=== PATIENT | female | born 1960 | race Caucasian/White ===

== ENCOUNTER 2018-04-18 10:42 | Inpatient (IN) | payer BC ==
[2018-04-18] MEDS ORDERED: ASPIRIN 81 MG TABLET, CHEWABLE PO ONE (11:11)
[2018-04-18 12:04] LABS: HEMATOCRIT 34.1 % (36.0-47.0); HEMOGLOBIN 11.4 g/dL (12.0-15.5); MEAN CORPUSCULAR HEMOGLOBIN 27.8 pg (27.0-33.4); MEAN CORPUSCULAR HGB CONC 33.6 g/dL (32.0-36.0); MEAN CORPUSCULAR VOLUME 83 fl (80-97); PLATELET COUNT 282 10^3/uL (150-450); RED BLOOD COUNT 4.11 10^6/uL (3.72-5.28); RED CELL DISTRIBUTION WIDTH 13.6 % (11.5-14.0); WHITE BLOOD COUNT 20.5 10^3/uL (4.0-10.5)
[2018-04-18 12:18] LABS: ALANINE AMINOTRANSFERASE 34 U/L (9-52); ALBUMIN 3.8 g/dL (3.5-5.0); ALKALINE PHOSPHATASE 111 U/L (38-126); ANION GAP 15 (5-19); ASPARTATE AMINO TRANSFERASE 22 U/L (14-36); BILIRUBIN,DIRECT 0.2 mg/dL (0.0-0.4); BILIRUBIN,TOTAL 0.5 mg/dL (0.2-1.3); BLOOD UREA NITROGEN 17 mg/dL (7-20); CALCIUM 9.2 mg/dL (8.4-10.2); CARBON DIOXIDE 24 mmol/L (22-30); CHLORIDE 100 mmol/L (98-107); CREATINE KINASE 35 U/L (30-135); GLUCOSE 193 mg/dL (75-110); POTASSIUM 3.9 mmol/L (3.6-5.0); SODIUM 139.4 mmol/L (137-145); TOTAL PROTEIN 6.7 g/dL (6.3-8.2)
--- NOTE | 2018-04-18 12:21 | RADIOLOGY REPORT (SQ) ---
EXAM DESCRIPTION: CHEST SINGLE VIEW COMPLETED DATE/TIME: 04/18/2018 11:59 am REASON FOR STUDY: cp COMPARISON: 01/07/2016 EXAM PARAMETERS: NUMBER OF VIEWS: One view. TECHNIQUE: Single frontal radiographic view of the chest acquired. RADIATION DOSE: NA LIMITATIONS: None. FINDINGS: LUNGS AND PLEURA: Low volume AP examination with probable bibasilar bronchovascular crowdi ng and/or atelectasis. MEDIASTINUM AND HILAR STRUCTURES: No masses. Contour normal. HEART AND VASCULAR STRUCTURES: Cardiomegaly. BONES: No acute findings. HARDWARE: None in the chest. OTHER: No other significant finding. IMPRESSION: Low volume AP examination with probable bibasilar bronchovascular crowding and/or atelec tasis. This may be further evaluated by PA and lateral chest radiographs with better inspiratory mindy hnique if desired. Cardiomegaly is likely exaggerated by low volume. TECHNICAL DOCUMENTATION: JOB ID: [id number] [employer]- All Rights Reserved Reading location - IP/workstation name: [email or web address]
[2018-04-18 12:27] LABS: ABSOLUTE LYMPHOCYTES# (MANUAL) 0.8 10^3/uL (0.5-4.7); ABSOLUTE MONOCYTES # (MANUAL) 1.6 10^3/uL (0.1-1.4); ABSOLUTE NEUTROPHILS# (MANUAL) 17.8 10^3/uL (1.7-8.2); BASOPHILS % (MANUAL) 0 % (0-2); EOSINOPHILS % (MANUAL) 1 % (0-6); LYMPHOCYTES % (MANUAL) 4 % (13-45); MONOCYTES % (MANUAL) 8 % (3-13); PLATELET COMMENT ADEQUATE; SEGMENTED NEUTROPHILS % (MAN) 87 % (42-78); TOTAL CELLS COUNTED 100
[2018-04-18] MEDS ORDERED: FAMOTIDINE INJ/PF 20 MG/2 ML SDV IV ONE (12:27)
[2018-04-18] MEDS ORDERED: ONDANSETRON HCL INJ/PF 4 MG/2 ML SDV IV ONE (12:27)
[2018-04-18] MEDS ORDERED: LOPERAMIDE HCL 2 MG CAPSULE PO ONE (12:28)
[2018-04-18] MEDS ORDERED: RINGERS SOLUTION,LACTATED 1,000 ML IV ONE (12:28)
[2018-04-18] MEDS ORDERED: MORPHINE SULFATE 10 MG/ML INJ IV ONE (12:29)
--- NOTE | 2018-04-18 12:35 | ER Document Report ---
ED General - General Chief Complaint: Chest Pain Stated Complaint: CHEST PAIN Time Seen by Provider: 04/18/18 11:53 Mode of Arrival: Ambulatory Information source: Patient, [facility] Records Notes: 58-year-old female with hypertension, congestive heart failure (echocardiogram performed in 2016 showed a normal ejection fraction), type 1 diabetes, hyperlipidemia, fibromyalgia presents with complaint of nausea, vomiting, diarrhea and chest pain that started this morning 7 hours prior to arrival. Patient states that she awoke this morning vomiting and having diarrhea. She states that she has had 4-5 episodes of nonbilious nonbloody emesis. She denies any black or bloody stools. Patient denies abdominal pain but states that she is experiencing chest pressure that also started 7 hours prior to arrival. Patient has had associated chills. Denies sick contacts. Has not received a flu shot. TRAVEL OUTSIDE OF THE [place] IN LAST 30 DAYS: No - HPI Onset: This morning Onset/Duration: Sudden Quality of pain: Pressure Associated symptoms: Chest pain, Chills, Diarrhea, Nausea, Vomiting, Shortness of breath. denies: Nonproductive cough, Productive cough Exacerbated by: Denies Relieved by: Denies Similar symptoms previously: No Recently seen / treated by doctor: No - Related Data Allergies/Adverse Reactions: metformin Adverse Reaction (Verified 11/28/15 16:01) strawberry Adverse Reaction (Verified 11/28/15 07:19) Past Medical History - General Information source: Patient, Relative, [facility] Records - Social History Smoking Status: Never Smoker Frequency of alcohol use: Social Drug Abuse: None Lives with: Spouse/Significant other Family History: None Patient has suicidal ideation: No Patient has homicidal ideation: No - Past Medical History Cardiac Medical History: Reports: Hx Congestive Heart Failure, Hx Hypercholesterolemia, Hx Hypertension Pulmonary Medical History: Reports: Hx Pneumonia Endocrine Medical History: Reports: Hx Diabetes Mellitus Type 1, Hx Diabetes Mellitus Type 2 Renal/ Medical History: Denies: Hx Peritoneal Dialysis Past Surgical History: Reports: Hx Breast Surgery - biopsy R breast, Hx Section - x2 - Immunizations Hx Diphtheria, Pertussis, Tetanus Vaccination: Yes Review of Systems - Review of Systems Constitutional: Chills, Malaise EENT: denies: Blurred vision, Nose congestion, Throat pain Cardiovascular: Chest pain. denies: Palpitations, Dizziness, Lightheaded Respiratory: Short of breath. denies: Cough, Wheezing Gastrointestinal: Diarrhea, Nausea, Vomiting. denies: Abdominal pain, Blood streaked bowels, Blood in vomit Genitourinary: denies: Dysuria, Flank pain Female Genitourinary: No symptoms reported Musculoskeletal: Back pain - Chronic Skin: denies: Rash Hematologic/Lymphatic: No symptoms reported Neurological/Psychological: denies: Confusion, Anxiety, Weakness, Headaches, Suicidal ideation -: Yes All other systems reviewed and negative Physical Exam - Vital signs Vitals: Temp Pulse Resp BP Pulse Ox 99.9 F 112 H 20 150/64 H 92 04/18/18 11:10 04/18/18 11:10 04/18/18 11:10 04/18/18 11:10 04/18/18 11:10 Interpretation: Tachycardic, Hypoxic, Febrile. No: Hypotensive - Notes Notes: PHYSICAL EXAMINATION: GENERAL: Ill-appearing, well-nourished and in mild distress. HEAD: Atraumatic, normocephalic. EYES: Pupils equal round and reactive to light, extraocular movements intact, conjunctiva are normal. ENT: Nares patent, oropharynx clear without exudates. Moist mucous membranes. NECK: Normal range of motion, supple without lymphadenopathy LUNGS: Breath sounds clear to auscultation bilaterally and equal. No wheezes rales or rhonchi. HEART: Tachycardic, regular rhythm. ABDOMEN: Diffuse abdominal tenderness without rebound or guarding. Female : deferred Musculoskeletal: Normal range of motion, no pitting or edema. No cyanosis. NEUROLOGICAL: Cranial nerves grossly intact. Normal speech, normal gait. Normal sensory, motor exams PSYCH: Normal mood, normal affect. SKIN: Warm, Dry, normal turgor, no rashes or lesions noted. Course - Re-evaluation Re-evalutation: Laboratory 04/18/18 04/18/18 04/18/18 11:40 11:40 11:40 WBC 20.5 H RBC 4.11 Hgb 11.4 L Hct 34.1 L MCV 83 MCH 27.8 MCHC 33.6 RDW 13.6 Plt Count 282 Total Counted 100 Seg Neutrophils % Not Reportable Seg Neuts % (Manual) 87 H Lymphocytes % Not Reportable Lymphocytes % (Manual) 4 L Monocytes % Not Reportable Monocytes % (Manual) 8 Eosinophils % Not Reportable Eosinophils % (Manual) 1 Basophils % Not Reportable Basophils % (Manual) 0 Absolute Neutrophils Not Reportable Abs Neuts (Manual) 17.8 H Absolute Lymphocytes Not Reportable Abs Lymphs (Manual) 0.8 Absolute Monocytes Not Reportable Abs Monocytes (Manual) 1.6 H Absolute Eosinophils Not Reportable Absolute Eos (Manual) 0.2 Absolute Basophils Not Reportable Abs Basophils (Manual) 0.0 Platelet Comment ADEQUATE Sodium 139.4 Potassium 3.9 Chloride 100 Carbon Dioxide 24 Anion Gap 15 BUN 17 Creatinine 0.57 Est GFR ( Amer) > 60 Est GFR (Non-Af Amer) > 60 Glucose 193 H Lactic Acid Calcium 9.2 Total Bilirubin 0.5 Direct Bilirubin 0.2 Neonat Total Bilirubin Not Reportable Neonat Direct Bilirubin Not Reportable Neonat Indirect Bili Not Reportable AST 22 ALT 34 Alkaline Phosphatase 111 Creatine Kinase 35 CK-MB (CK-2) < 0.22 Troponin I < 0.012 NT-Pro-B Natriuret Pep Total Protein 6.7 Albumin 3.8 Lipase Urine Color Urine Appearance Urine pH Ur Specific [place] Urine Protein Urine Glucose (UA) Urine Ketones Urine Blood Urine Nitrite Urine Bilirubin Urine Urobilinogen Ur Leukocyte Esterase Urine WBC (Auto) Urine RBC (Auto) U Hyaline Cast (Auto) Urine Bacteria (Auto) Squamous Epi Cells Auto Urine Mucus (Auto) Urine Ascorbic Acid Influenza A (Rapid) Influenza B (Rapid) 04/18/18 04/18/18 04/18/18 11:40 11:40 11:40 WBC RBC Hgb Hct MCV MCH MCHC RDW Plt Count Total Counted Seg Neutrophils % Seg Neuts % (Manual) Lymphocytes % Lymphocytes % (Manual) Monocytes % Monocytes % (Manual) Eosinophils % Eosinophils % (Manual) Basophils % Basophils % (Manual) Absolute Neutrophils Abs Neuts (Manual) Absolute Lymphocytes Abs Lymphs (Manual) Absolute Monocytes Abs Monocytes (Manual) Absolute Eosinophils Absolute Eos (Manual) Absolute Basophils Abs Basophils (Manual) Platelet Comment Sodium Potassium Chloride Carbon Dioxide Anion Gap BUN Creatinine Est GFR ( Amer) Est GFR (Non-Af Amer) Glucose Lactic Acid 0.9 Calcium Total Bilirubin Direct Bilirubin Neonat Total Bilirubin Neonat Direct Bilirubin Neonat Indirect Bili AST ALT Alkaline Phosphatase Creatine Kinase CK-MB (CK-2) Troponin I NT-Pro-B Natriuret Pep 152 Total Protein Albumin Lipase 52.8 Urine Color Urine Appearance Urine pH Ur Specific [place] Urine Protein Urine Glucose (UA) Urine Ketones Urine Blood Urine Nitrite Urine Bilirubin Urine Urobilinogen Ur Leukocyte Esterase Urine WBC (Auto) Urine RBC (Auto) U Hyaline Cast (Auto) Urine Bacteria (Auto) Squamous Epi Cells Auto Urine Mucus (Auto) Urine Ascorbic Acid Influenza A (Rapid) Influenza B (Rapid) 04/18/18 04/18/18 04/18/18 12:40 13:20 15:02 WBC RBC Hgb Hct MCV MCH MCHC RDW Plt Count Total Counted Seg Neutrophils % Seg Neuts % (Manual) Lymphocytes % Lymphocytes % (Manual) Monocytes % Monocytes % (Manual) Eosinophils % Eosinophils % (Manual) Basophils % Basophils % (Manual) Absolute Neutrophils Abs Neuts (Manual) Absolute Lymphocytes Abs Lymphs (Manual) Absolute Monocytes Abs Monocytes (Manual) Absolute Eosinophils Absolute Eos (Manual) Absolute Basophils Abs Basophils (Manual) Platelet Comment Sodium Potassium Chloride Carbon Dioxide Anion Gap BUN Creatinine Est GFR ( Amer) Est GFR (Non-Af Amer) Glucose Lactic Acid Calcium Total Bilirubin Direct Bilirubin Neonat Total Bilirubin Neonat Direct Bilirubin Neonat Indirect Bili AST ALT Alkaline Phosphatase Creatine Kinase CK-MB (CK-2) Troponin I < 0.012 NT-Pro-B Natriuret Pep Total Protein Albumin Lipase Urine Color STRAW Urine Appearance CLEAR Urine pH 5.0 Ur Specific [place] 1.008 Urine Protein NEGATIVE Urine Glucose (UA) >=500 H Urine Ketones NEGATIVE Urine Blood NEGATIVE Urine Nitrite NEGATIVE Urine Bilirubin NEGATIVE Urine Urobilinogen NEGATIVE Ur Leukocyte Esterase NEGATIVE Urine WBC (Auto) 2 Urine RBC (Auto) 0 U Hyaline Cast (Auto) 3 Urine Bacteria (Auto) 3+ Squamous Epi Cells Auto 1 Urine Mucus (Auto) RARE Urine Ascorbic Acid NEGATIVE Influenza A (Rapid) NEGATIVE Influenza B (Rapid) NEGATIVE Chest X-Ray 04/18/18 11:11 IMPRESSION: Low volume AP examination with probable bibasilar bronchovascular crowding and/or atelectasis. This may be further evaluated by PA and lateral chest radiographs with better inspiratory technique if desired. Cardiomegaly is likely exaggerated by low volume. Abdomen Ultrasound 04/18/18 12:35 IMPRESSION: NORMAL RIGHT UPPER QUADRANT ULTRASOUND. Abdomen/Pelvis CT 04/18/18 12:35 IMPRESSION: NO SIGNIFICANT OR ACUTE FINDING IN THE ABDOMEN OR PELVIS ON CT SCAN WITH IV CONTRAST. Chest/Abdomen CTA 04/18/18 12:37 IMPRESSION: No pulmonary emboli. Pericardial effusion. Scattered parenchymal opacities predominantly right middle lobe and left lung base. Fatty liver. 58-year-old female presents with complaint of nausea, vomiting, diarrhea, chest pain and chills that started at 7 AM this morning. Upon arrival patient is tachycardic, febrile and hypoxic. She appears ill but not toxic or dehydrated. Upon arrival patient was placed on court recording monitor and EKG was obtained which showed the patient be in sinus tachycardia.. Patient is requiring 2 L of oxygen to maintain an oxygen saturation above 94%. No significant physical exam findings. Because of the patient's diffuse abdominal tenderness right upper quadrant ultrasound was obtained and within normal limits as well as a CAT scan of the abdomen and pelvis which showed no acute findings. Because of the patient's persistent tachycardia, hypoxia CTA was obtained which was negative for pulmonary embolism but did show a pericardial effusion and infiltrates consistent with pneumonia. I did contact the radiologist in regards to the size of the pericardial effusion which she states is moderate. Patient has not had any hospitalizations in the last 90 days. Ceftriaxone and azithromycin were administered. CBC does show a significant leukocytosis of 20. CMP essentially unremarkable except for elevated glucose of 190. Lactate within normal limits. LFTs within normal limits. Influenza negative. Patient was accepted by the hospitalist . Patient does report improvement of her symptoms. Heart rate now 90. 04/18/18 14:57 Patient reevaluated. She is sitting up texting on her phone. States that her chest discomfort nausea, vomiting and diarrhea have resolved. Still requires oxygen for hypoxia. 04/18/18 17:24 04/18/18 17:26 04/18/18 17:27 04/18/18 17:33 04/18/18 21:13 - Vital Signs Vital signs: Temp Pulse Resp BP Pulse Ox 97.9 F 80 16 125/40 L 99 04/18/18 18:18 04/18/18 19:45 04/18/18 19:45 04/18/18 18:18 04/18/18 18:18 - Laboratory Result Diagrams: 04/18/18 11:40 04/18/18 11:40 Laboratory results interpreted by me: 04/18/18 04/18/18 04/18/18 11:40 11:40 13:20 WBC 20.5 H Hgb 11.4 L Hct 34.1 L Seg Neuts % (Manual) 87 H Lymphocytes % (Manual) 4 L Abs Neuts (Manual) 17.8 H Abs Monocytes (Manual) 1.6 H Glucose 193 H Urine Glucose (UA) >=500 H - Diagnostic Test Radiology reviewed: Image reviewed, Reports reviewed - EKG Interpretation by Me EKG shows normal: Sinus rhythm Rate: Tachycardia Rhythm: NSR Discharge - Discharge Clinical Impression: Tachycardia, Pericardial effusion, Nausea vomiting and diarrhea, Hyperglycemia Community acquired pneumonia Qualifiers: Laterality: unspecified laterality Qualified Code(s): J18.9 - Pneumonia, unspecified organism Fever Qualifiers: Fever type: unspecified Qualified Code(s): R50.9 - Fever, unspecified Abdominal pain Qualifiers: Abdominal location: generalized Qualified Code(s): R10.84 - Generalized abdominal pain Condition: Good Disposition: ADMITTED INPATIENT Admitting Provider: Hospitalist Unit Admitted: Telemetry
[2018-04-18 12:37] LABS: CREATINE KINASE MB < 0.22 ng/mL (<4.55); TROPONIN I < 0.012 ng/mL
[2018-04-18 13:22] LABS: A TYPE INFLUENZA AG NEGATIVE (NEGATIVE); B INFLUENZA AG NEGATIVE (NEGATIVE)
[2018-04-18] MEDS ORDERED: ACETAMINOPHEN 325 MG TABLET PO ONE (13:48)
--- NOTE | 2018-04-18 13:50 | RADIOLOGY REPORT (SQ) ---
EXAM DESCRIPTION: U/S ABDOMEN LIMITED W/O DOP COMPLETED DATE/TIME: 04/18/2018 1:43 pm REASON FOR STUDY: Right upper quadrant abdominal pain COMPARISON: None. TECHNIQUE: Dynamic and static grayscale images acquired of the abdomen and recorded on PACS. Additio betty selected color Doppler and spectral images recorded. LIMITATIONS: None. FINDINGS: PANCREAS: No masses. Visualized pancreatic duct normal caliber. LIVER: No masses. Echotexture normal. LIVER VASCULATURE: Normal directional flow of the main portal vein and hepatic veins. GALLBLADDER: No stones. Normal wall thickness. No pericholecystic fluid. ULTRASOUND-DETECTED BECKMAN'S SIGN: Negative. INTRAHEPATIC DUCTS AND COMMON DUCT: CBD and intrahepatic ducts normal caliber. No filling defects. INFERIOR VENA CAVA: Normal flow. AORTA: No aneurysm. RIGHT KIDNEY: Normal size. Normal echogenicity. No solid or suspicious masses. No hydronephrosis. No calcifications. PERITONEAL AND RIGHT PLEURAL SPACE: No ascites or effusions. OTHER: No other significant findings. IMPRESSION: NORMAL RIGHT UPPER QUADRANT ULTRASOUND. TECHNICAL DOCUMENTATION: JOB ID: [id number] [employer]- All Rights Reserved Reading location - IP/workstation name: [email or web address]
[2018-04-18 14:10] LABS: APPEARANCE,URINE CLEAR; BILIRUBIN,URINE NEGATIVE (NEGATIVE); COLOR,URINE STRAW; GLUCOSE, URINE >=500 mg/dL (NEGATIVE); KETONES,URINE NEGATIVE (NEGATIVE); LEUKOCYTE ESTERASE,URINE NEGATIVE (NEGATIVE); NITRITE,URINE NEGATIVE (NEGATIVE); PROTEIN,URINE NEGATIVE (NEGATIVE); URINE SPECIFIC GRAVITY 1.008; UROBILINOGEN,URINE NEGATIVE mg/dL (<2.0)
--- NOTE | 2018-04-18 15:49 | RADIOLOGY REPORT (SQ) ---
EXAM DESCRIPTION: CTA CHEST COMPLETED DATE/TIME: 04/18/2018 3:39 pm REASON FOR STUDY: hypoxic tachy COMPARISON: Chest radiograph 04/18/2018 TECHNIQUE: CT scan of the chest performed using helical scanning technique with dynamic intravenous contrast injection. Images reviewed with lung, soft tissue and bone windows. Reconstructed coronal and sagittal MPR images reviewed. Additional 3 dimensional post-processing performed to develop Maximal Intensity Projection images (NE P). All images stored on PACS. All CT scanners at this facility use dose modulation, iterative reconstruction, and/or weight based d osing when appropriate to reduce radiation dose to as low as reasonably achievable (ALARA). [facility]: Dose Right [facility]: CareDose [facility]: Dose Right [facility]: Teradose 4D [facility]: Smart [employer] CONTRAST TYPE AND DOSE: contrast/concentration: Isovue 350.00 mg/ml; Total Contrast Delivered: 77.0 ml; Total Saline Delivered: 111.0 ml Contrast bolus adequate for pulmonary arteries and aorta. RENAL FUNCTION: GFR > 60. RADIATION DOSE: . LIMITATIONS: None. FINDINGS: LUNGS AND PLEURA: Scattered parenchymal opacities predominantly right middle lobe and left lung base. No effusions. AORTA AND GREAT VESSELS: No aneurysm. Contrast bolus not optimized for the aorta. HEART: Pericardial effusion. No significant coronary artery calcifications. PULMONARY ARTERIES: No emboli visualized in the main pulmonary arteries or the segmental branches. HILAR AND MEDIASTINAL STRUCTURES: No identified masses or abnormal nodes. HARDWARE: None in the chest. UPPER ABDOMEN: Fatty liver. THYROID AND OTHER SOFT TISSUES: No masses. No adenopathy. BONES: No acute or significant finding. 3D MIPS: Confirm above findings. OTHER: No other significant finding. IMPRESSION: No pulmonary emboli. Pericardial effusion. Scattered parenchymal opacities predominant ly right middle lobe and left lung base. Fatty liver. COMMENT: Quality ID # [id number]: Final reports with documentation of one or more dose reduction techniques (e.g., Automated exposure control, adjustment of the mA and/or kV according to patient size, use of iterative reconstruction technique) TECHNICAL DOCUMENTATION: JOB ID: [id number] [employer]- All Rights Reserved Reading location - IP/workstation name: [email or web address]
--- NOTE | 2018-04-18 15:52 | RADIOLOGY REPORT (SQ) ---
EXAM DESCRIPTION: CT ABD/PELVIS WITH IV ONLY COMPLETED DATE/TIME: 04/18/2018 3:39 pm REASON FOR STUDY: Epigastric abdominal pain COMPARISON: None. TECHNIQUE: CT scan of the abdomen and pelvis performed using helical scanning technique with dynamic intravenous contrast injection. No oral contrast. Images reviewed with lung, soft tissue, and bone windows. Reconstructed coronal and sagittal MPR images reviewed. Delayed images for evaluation of the urinary system also acquired. All images stored on PACS. All CT scanners at this facility use dose modulation, iterative reconstruction, and/or weight based d osing when appropriate to reduce radiation dose to as low as reasonably achievable (ALARA). [facility]: Dose Right [facility]: CareDose [facility]: Dose Right [facility]: Teradose 4D [facility]: Smart [employer] CONTRAST TYPE AND DOSE: Not recorded not record RENAL FUNCTION: GFR > 60. RADIATION DOSE: CT Rad equipment meets quality standard of care and radiation dose reduction techniq ues were employed. CTDIvol: 19.1 - 25.4 mGy. DLP: 3144 mGy-cm.. LIMITATIONS: None. FINDINGS: LOWER CHEST: No significant findings. No nodules or infiltrates. LIVER: Fatty infiltration. No focal masses. SPLEEN: Normal size. No focal lesions. PANCREAS: No masses. No significant calcifications. No adjacent inflammation or peripancreatic fluid collections. Pancreatic duct not dilated. GALLBLADDER: No identified stones by CT criteria. No inflammatory changes to suggest cholecystitis. ADRENAL GLANDS: No significant masses or asymmetry. RIGHT KIDNEY AND URETER: No solid masses. No significant calcifications. No hydronephrosis or hyd roureter. LEFT KIDNEY AND URETER: No solid masses. No significant calcifications. No hydronephrosis or hydr oureter. AORTA AND VESSELS: No aneurysm. No dissection. Renal arteries, SMA, celiac without stenosis. RETROPERITONEUM: No retroperitoneal adenopathy, hemorrhage or masses. BOWEL AND PERITONEAL CAVITY: No masses or inflammatory changes. No free fluid or peritoneal masses. APPENDIX: Not visualized. PELVIS: No mass. No free fluid. Normal bladder. ABDOMINAL WALL: No masses. No hernias. BONES: No significant or acute findings. OTHER: No other significant finding. IMPRESSION: NO SIGNIFICANT OR ACUTE FINDING IN THE ABDOMEN OR PELVIS ON CT SCAN WITH IV CONTRAST. TECHNICAL DOCUMENTATION: JOB ID: [id number] Quality ID # [id number]: Final reports with documentation of one or more dose reduction techniques (e.g., Au tomated exposure control, adjustment of the mA and/or kV according to patient size, use of iterative reconstruction technique) 2010 [employer]- All Rights Reserved Reading location - IP/workstation name: [email or web address]
[2018-04-18] MEDS ORDERED: AZITHROMYCIN 250 MG TABLET PO ONE (16:20)
[2018-04-18] MEDS ORDERED: CEFTRIAXONE 2 GM/D5W RTU 2 GM/50 ML RTUPB IV ONE (16:20)
[2018-04-18] MEDS ORDERED: CEFTRIAXONE INJ 1000 MG VIAL ONE (16:36)
[2018-04-18] MEDS ORDERED: DEXTROSE 40% GEL 15 GM TUBE PO PRN ×2 (17:21)
[2018-04-18] MEDS ORDERED: DEXTROSE 50%-WATER 25 GM/50 ML DISP.SYRIN IV PRN ×2 (17:21)
[2018-04-18] MEDS ORDERED: GLUCAGON,HUMAN RECOMB 1 MG INJ IM PRN (17:21)
[2018-04-18] MEDS: FUROSEMIDE 40 MG TABLET PO SCH (18:14)
--- NOTE | 2018-04-18 18:37 | PDOC H&P ---
History of Present Illness Admission Date/PCP: 04/18/18 16:42 ROSSY BERGER MD Patient complains of: cough and shortness of breath History of Present Illness: JOHN CUADRA is a 58 year old female with a PMH of HTN, HLD, CHF and DM type 2 who presented to the Ed c/o cough, chest pain, and SOB that was worse this morning. patient states she's been coughing for the past week and this morning it became worse. states her cough is non productive- she felt some chills but denies any fever at home. states this morning she started to have chest pain in the center- reproducible to palpation- worse with cough and deep breathing- intermittent in nature- does not radiate. denies left arm pain, jaw pain, diaphoresis or headaches. in the ED she complained of abdominal pain but now she tells me she doesn't have any pain. she denies recent travel, sick contacts or change in med/diet in the psat few weeks. in the ER she had CTA chest which shows RML and LLL PNA with some pericardial effusion. Past Medical History Cardiac Medical History: Reports: Congestive Heart Failure, Hyperlipidema, Hypertension Pulmonary Medical History: Reports: Pneumonia Endocrine Medical History: Reports: Diabetes Mellitus Type 1, Diabetes Mellitus Type 2 Past Surgical History Past Surgical History: Reports: Section - x2 Social History Information Source: Patient Lives with: Spouse/Significant other Smoking Status: Never Smoker Frequency of Alcohol Use: Social Hx Recreational Drug Use: No Drugs: None Hx Prescription Drug Abuse: No - Advance Directive Resuscitation Status: Full Code Family History Family History: None Parental Family History Reviewed: Yes Children Family History Reviewed: Unknown Sibling(s) Family History Reviewed.: Yes - sister had cervical CA Medication/Allergy Home Medications: Atorvastatin Calcium [Lipitor 40 mg Tablet] 1 tab PO DAILY 04/18/18 Bendamustine HCl [Treanda Inj 100 mg Sdv] 10 units SQ DAILY 04/18/18 Carvedilol [Carvedilol] 1 tab PO Q12 04/18/18 Furosemide [Lasix 40 mg Tablet] 40 mg PO BID 04/18/18 Glimepiride [Amaryl 4 mg Tablet] 1 tab PO BID 04/18/18 Liraglutide [Victoza 2-Martinez] 1.8 mg SQ DAILY 04/18/18 Lisinopril [Prinivil 40 mg Tablet] 40 mg PO BID 04/18/18 Pen Needle, Diabetic [Ultra-Fine Mini Pen Needle] 4 units SQ Q8 04/18/18 Saxagliptin HCl/Metformin HCl [Kombiglyze Xr 5-1,000 mg Tab] 1 tab PO DAILY 01/26 Allergies/Adverse Reactions: metformin Adverse Reaction (Verified 11/28/15 16:01) strawberry Adverse Reaction (Verified 11/28/15 07:19) Review of Systems All systems: reviewed and no additional remarkable complaints except as stated Constitutional: PRESENT: chills. ABSENT: fever(s) Eyes: ABSENT: visual disturbances Nose, Mouth, and Throat: ABSENT: sore throat Cardiovascular: PRESENT: chest pain. ABSENT: edema, orthropnea, palpitations Respiratory: PRESENT: cough, dyspnea. ABSENT: hemoptysis, sputum Gastrointestinal: PRESENT: diarrhea, nausea, vomiting. ABSENT: abdominal pain Genitourinary: ABSENT: dysuria Musculoskeletal: ABSENT: joint swelling Integumentary: ABSENT: rash Neurological: ABSENT: frequent falls Hematologic/Lymphatic: ABSENT: easy bruising Physical Exam Vital Signs: Temp Pulse Resp BP Pulse Ox 101.0 F H 112 H 19 161/55 H 98 04/18/18 12:36 04/18/18 11:10 04/18/18 17:01 04/18/18 17:01 04/18/18 17:01 General appearance: PRESENT: no acute distress, cooperative, obese Head exam: PRESENT: atraumatic, normocephalic Eye exam: PRESENT: EOMI. ABSENT: conjunctival injection, scleral icterus Ear exam: PRESENT: normal external ear exam Mouth exam: PRESENT: tongue midline Neck exam: ABSENT: tracheal deviation Respiratory exam: PRESENT: crackles, decreased breath sounds - bilaterally - mostly at the bases with some crackles at the left base, symmetrical Cardiovascular exam: PRESENT: +S1, +S2 Pulses: PRESENT: +2 pedal pulses bilateral GI/Abdominal exam: PRESENT: normal bowel sounds, soft. ABSENT: tenderness Extremities exam: ABSENT: pedal edema Musculoskeletal exam: ABSENT: tenderness Neurological exam: PRESENT: alert, awake, oriented to person, oriented to place , oriented to time, oriented to situation, CN II-XII grossly intact Psychiatric exam: ABSENT: suicidal ideation Skin exam: PRESENT: dry, warm Results Impressions: Chest X-Ray 04/18/18 11:11 IMPRESSION: Low volume AP examination with probable bibasilar bronchovascular crowding and/or atelectasis. This may be further evaluated by PA and lateral chest radiographs with better inspiratory technique if desired. Cardiomegaly is likely exaggerated by low volume. Abdomen Ultrasound 04/18/18 12:35 IMPRESSION: NORMAL RIGHT UPPER QUADRANT ULTRASOUND. Abdomen/Pelvis CT 04/18/18 12:35 IMPRESSION: NO SIGNIFICANT OR ACUTE FINDING IN THE ABDOMEN OR PELVIS ON CT SCAN WITH IV CONTRAST. Chest/Abdomen CTA 04/18/18 12:37 IMPRESSION: No pulmonary emboli. Pericardial effusion. Scattered parenchymal opacities predominantly right middle lobe and left lung base. Fatty liver. Assessment & Plan - Diagnosis (1) Community acquired pneumonia Qualifiers: Laterality: unspecified laterality Qualified Code(s): J18.9 - Pneumonia, unspecified organism Is this a current diagnosis for this admission?: Yes (2) Acute respiratory failure with hypoxemia Is this a current diagnosis for this admission?: Yes (3) Diabetes mellitus type 2 in obese Is this a current diagnosis for this admission?: Yes (4) Essential hypertension Is this a current diagnosis for this admission?: Yes (5) Hyperlipidemia Is this a current diagnosis for this admission?: Yes (6) Pericardial effusion Is this a current diagnosis for this admission?: Yes (7) Diastolic CHF Qualifiers: Heart failure chronicity: chronic Qualified Code(s): I50.32 - Chronic diastolic (congestive) heart failure Is this a current diagnosis for this admission?: Yes - Time Time Spent: 50 to 70 Minutes Anticipated discharge: Home - Plan Summary Plan Summary: Community acquired PNA- RML and LLL -start on Rocephin and azithromycin. I think her chest pain and shortness of breath all related to the pneumonia. I have added DuoNeb nebulizer treatments to help with her breathing. She was also having trouble with some shortness of breath and hence oxygen was placed and she felt a little bit better. We will try to wean her off the oxygen prior to discharge. CTA chest was done and ruled out PE. Acute hypoxic respiratory failure-most likely secondary to above. See plan above. Pericardial effusion-seen on CTA chest but this was also present in past CTAs. I will order an echocardiogram to evaluate the fusion. Chronic diastolic heart failure-she is on 40 mg Lasix twice a day. I have continue it for now. I have also ordered an echocardiogram to evaluate the heart function. Her last echocardiogram was in 2016 showing grade 2/4 diastolic dysfunction. Hypertension-I have restarted her home meds but at a lower dose at this time. We can titrate up to her home dose if her blood pressure remained stable. Diabetes mellitus-she is on insulin at home. I have held those and started on Lantus 10 units nightly and SSI. We can titrate Lantus up as needed.
[2018-04-18] MEDS: IPRATROPIUM/ALBUTEROL 0.5-2.5 MG/3 ML AMPUL NEB SCH ×2 (19:46→23:51)
[2018-04-18] MEDS ORDERED: INSULIN GLARGINE,HUM.REC.ANLOG 1,000 UNIT/10 ML UNIT SUBCUT ONE (21:36)
[2018-04-18] MEDS: HEPARIN SOD (PORCINE) 5,000 UNIT/ML 1 ML SYRINGE SUBCUT SCH (21:38)
[2018-04-18] MEDS: INSULIN LISPRO 100 UNIT/ML 3 ML VIAL SUBCUT PRN (21:38)
[2018-04-18] MEDS: CARVEDILOL 12.5 MG TABLET PO SCH (21:39)
[2018-04-18] MEDS: GUAIFENESIN 600 MG TABLET.SA PO SCH (21:39)
[2018-04-18] MEDS: FAMOTIDINE 20 MG TABLET PO SCH (21:40)
[2018-04-18] MEDS: INSULIN GLARGINE,HUM.REC.ANLOG 300 UNIT/3 ML INSULN.PEN SUBCUT SCH (21:48)
--- NOTE | 2018-04-18 22:16 | EKG REPORT ---
SEVERITY:- BORDERLINE ECG - SINUS TACHYCARDIA BORDERLINE R WAVE PROGRESSION, ANTERIOR LEADS : Confirmed by: Tatiana Falcon 18-Apr-2018 22:15:18
[2018-04-18 22:31] LABS: APPEARANCE,URINE CLEAR; BILIRUBIN,URINE NEGATIVE (NEGATIVE); COLOR,URINE COLORLESS; GLUCOSE, URINE >=500 mg/dL (NEGATIVE); KETONES,URINE NEGATIVE (NEGATIVE); LEUKOCYTE ESTERASE,URINE NEGATIVE (NEGATIVE); NITRITE,URINE NEGATIVE (NEGATIVE); PROTEIN,URINE NEGATIVE (NEGATIVE); URINE SPECIFIC GRAVITY 1.008; UROBILINOGEN,URINE NEGATIVE mg/dL (<2.0)
[2018-04-19] MEDS: IPRATROPIUM/ALBUTEROL 0.5-2.5 MG/3 ML AMPUL NEB SCH ×6 (04:30→23:58)
[2018-04-19 05:14] LABS: ABSOLUTE BASOPHILS # (AUTO) 0.1 10^3/uL (0.0-0.2); ABSOLUTE EOSINOPHILS # (AUTO) 0.5 10^3/uL (0.0-0.6); ABSOLUTE LYMPHOCYTES (AUTO) 1.4 10^3/uL (0.5-4.7); ABSOLUTE MONOCYTES (AUTO) 0.7 10^3/uL (0.1-1.4); ABSOLUTE NEUT (AUTO) 10.5 10^3/uL (1.7-8.2); BASOPHILS % (AUTO) 0.8 % (0-2); EOSINOPHILS % (AUTO) 3.5 % (0-6); HEMATOCRIT 31.4 % (36.0-47.0); HEMOGLOBIN 10.5 g/dL (12.0-15.5); LYMPHOCYTES % (AUTO) 10.8 % (13-45); MEAN CORPUSCULAR HEMOGLOBIN 27.6 pg (27.0-33.4); MEAN CORPUSCULAR HGB CONC 33.5 g/dL (32.0-36.0); MEAN CORPUSCULAR VOLUME 82 fl (80-97); MONOCYTES % (AUTO) 5.3 % (3-13); PLATELET COUNT 251 10^3/uL (150-450); RED BLOOD COUNT 3.81 10^6/uL (3.72-5.28); RED CELL DISTRIBUTION WIDTH 13.8 % (11.5-14.0); SEGMENTED NEUTROPHILS % (AUTO) 79.6 % (42-78); TOTAL CELLS COUNTED % (AUTO) 100 %; WHITE BLOOD COUNT 13.2 10^3/uL (4.0-10.5)
[2018-04-19] MEDS: HEPARIN SOD (PORCINE) 5,000 UNIT/ML 1 ML SYRINGE SUBCUT SCH ×3 (05:26→22:32)
[2018-04-19 05:36] LABS: ANION GAP 14 (5-19); BLOOD UREA NITROGEN 15 mg/dL (7-20); CALCIUM 8.7 mg/dL (8.4-10.2); CARBON DIOXIDE 28 mmol/L (22-30); CHLORIDE 101 mmol/L (98-107); GLUCOSE 125 mg/dL (75-110); POTASSIUM 3.3 mmol/L (3.6-5.0); SODIUM 143.2 mmol/L (137-145)
[2018-04-19] MEDS ORDERED: CEFTRIAXONE 1 GM/D5W RTU 1 GM/50 ML RTUPB IV SCH (10:00)
[2018-04-19] MEDS: ACETAMINOPHEN 325 MG TABLET PO PRN ×3 (10:24→23:35)
[2018-04-19] MEDS: FUROSEMIDE 40 MG TABLET PO SCH ×2 (10:25→17:42)
[2018-04-19] MEDS: GUAIFENESIN 600 MG TABLET.SA PO SCH ×2 (10:26→22:26)
[2018-04-19] MEDS: LISINOPRIL 10 MG TABLET PO SCH (10:26)
[2018-04-19] MEDS: CARVEDILOL 12.5 MG TABLET PO SCH ×2 (10:26→22:26)
[2018-04-19] MEDS: FAMOTIDINE 20 MG TABLET PO SCH ×2 (10:26→22:27)
[2018-04-19] MEDS: CEFTRIAXONE SODIUM 1,000 MG in DEXTROSE 5%-WATER 50 ML IV SCH (10:27)
[2018-04-19] MEDS: AZITHROMYCIN 500 MG in DEXTROSE 5%-WATER 250 ML IV SCH (10:27)
[2018-04-19] MEDS: INSULIN LISPRO 100 UNIT/ML 3 ML VIAL SUBCUT PRN ×3 (12:13→22:35)
--- NOTE | 2018-04-19 16:06 | PDOC PROGRESS REPORT ---
Subjective Progress Note for:: 04/19/18 Subjective:: No adverse events overnight. No new complaints. She is not having fevers anymore. She is got a cough but it is nonproductive. Breathing is comfortable when she still on oxygen. She has been eating and drinking without difficulty. Reason For Visit: PNEUMONIA Physical Exam Vital Signs: Temp Pulse Resp BP Pulse Ox 97.5 F 88 16 155/65 H 89 L 04/19/18 11:38 04/19/18 12:36 04/19/18 12:36 04/19/18 11:38 04/19/18 12:36 Intake & Output 04/18/18 04/19/18 04/20/18 06:59 06:59 06:59 Intake Total 447 1187 Balance 447 1187 Weight 102.6 kg 102.6 kg General appearance: PRESENT: no acute distress, cooperative, disheveled, morbidly obese Respiratory exam: PRESENT: crackles - Bibasilar, symmetrical, unlabored. ABSENT : accessory muscle use, prolonged expiratory phas, rhonchi, tachypnea, wheezes Cardiovascular exam: PRESENT: RRR, +S1, +S2. ABSENT: diastolic murmur, systolic murmur Vascular exam: PRESENT: normal capillary refill GI/Abdominal exam: PRESENT: normal bowel sounds, soft. ABSENT: distended, guarding, rebound, tenderness Extremities exam: ABSENT: clubbing, pedal edema Musculoskeletal exam: PRESENT: normal inspection. ABSENT: deformity Neurological exam: PRESENT: alert, awake, oriented to person, oriented to place , oriented to time, oriented to situation Psychiatric exam: PRESENT: appropriate affect, normal mood Skin exam: PRESENT: dry, warm Results Laboratory Results: 04/19/18 05:05 04/19/18 05:05 04/18/18 04/19/18 04/19/18 22:00 05:05 05:05 WBC 13.2 H RBC 3.81 Hgb 10.5 L Hct 31.4 L MCV 82 MCH 27.6 MCHC 33.5 RDW 13.8 Plt Count 251 Seg Neutrophils % 79.6 H Lymphocytes % 10.8 L Monocytes % 5.3 Eosinophils % 3.5 Basophils % 0.8 Absolute Neutrophils 10.5 H Absolute Lymphocytes 1.4 Absolute Monocytes 0.7 Absolute Eosinophils 0.5 Absolute Basophils 0.1 Sodium 143.2 Potassium 3.3 L Chloride 101 Carbon Dioxide 28 Anion Gap 14 BUN 15 Creatinine 0.62 Est GFR ( Amer) > 60 Est GFR (Non-Af Amer) > 60 Glucose 125 H Calcium 8.7 Urine Color COLORLESS Urine Appearance CLEAR Urine pH 6.0 Ur Specific [place] 1.008 Urine Protein NEGATIVE Urine Glucose (UA) >=500 H Urine Ketones NEGATIVE Urine Blood NEGATIVE Urine Nitrite NEGATIVE Ur Leukocyte Esterase NEGATIVE Urine WBC (Auto) 3 Urine RBC (Auto) 0 Impressions: Chest X-Ray 04/18/18 11:11 IMPRESSION: Low volume AP examination with probable bibasilar bronchovascular crowding and/or atelectasis. This may be further evaluated by PA and lateral chest radiographs with better inspiratory technique if desired. Cardiomegaly is likely exaggerated by low volume. Abdomen Ultrasound 04/18/18 12:35 IMPRESSION: NORMAL RIGHT UPPER QUADRANT ULTRASOUND. Abdomen/Pelvis CT 04/18/18 12:35 IMPRESSION: NO SIGNIFICANT OR ACUTE FINDING IN THE ABDOMEN OR PELVIS ON CT SCAN WITH IV CONTRAST. Chest/Abdomen CTA 04/18/18 12:37 IMPRESSION: No pulmonary emboli. Pericardial effusion. Scattered parenchymal opacities predominantly right middle lobe and left lung base. Fatty liver. Assessment & Plan - Diagnosis (1) Acute respiratory failure with hypoxemia Is this a current diagnosis for this admission?: Yes Plan: Currently stable on 3 L nasal cannula. We will continue to wean oxygen as tolerated. Encouraged aggressive pulmonary toilet. (2) Community acquired pneumonia Qualifiers: Laterality: right Lung location: lower lobe of lung Qualified Code(s): J18.1 - Lobar pneumonia, unspecified organism Is this a current diagnosis for this admission?: Yes Plan: This is actually a bilateral lower lobe pneumonia but the coding software would not allow me to enter that as a diagnosis. She is improving on empiric antibiotic therapy. Cultures are pending. We will switch to oral antibiotics as soon as reasonable to do so. (3) Pericardial effusion Is this a current diagnosis for this admission?: Yes Plan: This may be chronic. An echocardiogram has been ordered to compare with prior studies. - Time Time Spent with patient: 15-24 minutes
[2018-04-19] MEDS: ATORVASTATIN CALCIUM 40 MG TABLET PO SCH (22:26)
[2018-04-19] MEDS: INSULIN GLARGINE,HUM.REC.ANLOG 300 UNIT/3 ML INSULN.PEN SUBCUT SCH (22:29)
[2018-04-20] MEDS: IPRATROPIUM/ALBUTEROL 0.5-2.5 MG/3 ML AMPUL NEB SCH ×5 (03:58→20:08)
[2018-04-20] MEDS: HEPARIN SOD (PORCINE) 5,000 UNIT/ML 1 ML SYRINGE SUBCUT SCH ×3 (05:43→21:51)
[2018-04-20] MEDS: INSULIN LISPRO 100 UNIT/ML 3 ML VIAL SUBCUT PRN ×4 (07:23→21:56)
[2018-04-20] MEDS: GUAIFENESIN 600 MG TABLET.SA PO SCH ×2 (11:14→21:45)
[2018-04-20] MEDS: FUROSEMIDE 40 MG TABLET PO SCH ×2 (11:14→17:01)
[2018-04-20] MEDS: LISINOPRIL 10 MG TABLET PO SCH (11:14)
[2018-04-20] MEDS: CARVEDILOL 12.5 MG TABLET PO SCH ×2 (11:15→21:49)
[2018-04-20] MEDS: AZITHROMYCIN 500 MG in DEXTROSE 5%-WATER 250 ML IV SCH (11:15)
[2018-04-20] MEDS: FAMOTIDINE 20 MG TABLET PO SCH ×2 (11:15→21:49)
[2018-04-20] MEDS: CEFTRIAXONE SODIUM 1,000 MG in DEXTROSE 5%-WATER 50 ML IV SCH (12:30)
--- NOTE | 2018-04-20 18:07 | PDOC PROGRESS REPORT ---
Subjective Progress Note for:: 04/20/18 Subjective:: No adverse events overnight. She feels a lot better today. She is off oxygen and has been ambulating. No shortness of breath. Cough is been productive. Reason For Visit: PNEUMONIA Physical Exam Vital Signs: Temp Pulse Resp BP Pulse Ox 97.8 F 90 20 176/69 H 95 04/20/18 15:23 04/20/18 15:23 04/20/18 15:23 04/20/18 15:23 04/20/18 15:23 Intake & Output 04/19/18 04/20/18 04/21/18 06:59 06:59 06:59 Intake Total 447 1424 798 Balance 447 1424 798 Weight 102.6 kg 101.8 kg General appearance: PRESENT: no acute distress, cooperative, morbidly obese Respiratory exam: PRESENT: Faint crackles - Bibasilar, symmetrical, unlabored. ABSENT: accessory muscle use, prolonged expiratory phase, rhonchi, tachypnea, wheezes Cardiovascular exam: PRESENT: RRR, +S1, +S2. ABSENT: diastolic murmur, systolic murmur Vascular exam: PRESENT: normal capillary refill GI/Abdominal exam: PRESENT: normal bowel sounds, soft. ABSENT: distended, guarding, rebound, tenderness Extremities exam: ABSENT: clubbing, pedal edema Musculoskeletal exam: PRESENT: normal inspection. ABSENT: deformity Neurological exam: PRESENT: alert, awake, oriented to person, oriented to place , oriented to time, oriented to situation Psychiatric exam: PRESENT: appropriate affect, normal mood Skin exam: PRESENT: dry, warm Results Laboratory Results: 04/19/18 05:05 04/19/18 05:05 Impressions: Chest X-Ray 04/18/18 11:11 IMPRESSION: Low volume AP examination with probable bibasilar bronchovascular crowding and/or atelectasis. This may be further evaluated by PA and lateral chest radiographs with better inspiratory technique if desired. Cardiomegaly is likely exaggerated by low volume. Abdomen Ultrasound 04/18/18 12:35 IMPRESSION: NORMAL RIGHT UPPER QUADRANT ULTRASOUND. Abdomen/Pelvis CT 04/18/18 12:35 IMPRESSION: NO SIGNIFICANT OR ACUTE FINDING IN THE ABDOMEN OR PELVIS ON CT SCAN WITH IV CONTRAST. Chest/Abdomen CTA 04/18/18 12:37 IMPRESSION: No pulmonary emboli. Pericardial effusion. Scattered parenchymal opacities predominantly right middle lobe and left lung base. Fatty liver. Assessment & Plan - Diagnosis (1) Acute respiratory failure with hypoxemia Is this a current diagnosis for this admission?: Yes Plan: Resolved. Currently stable on room air. Encouraged aggressive pulmonary toilet. (2) Community acquired pneumonia Qualifiers: Laterality: right Lung location: lower lobe of lung Qualified Code(s): J18.1 - Lobar pneumonia, unspecified organism Is this a current diagnosis for this admission?: Yes Plan: This is actually a bilateral lower lobe pneumonia but the coding software would not allow me to enter that as a diagnosis. She is improving on empiric antibiotic therapy. Cultures are pending. We will switch to oral antibiotics as soon as reasonable to do so, probably tomorrow. (3) Pericardial effusion Is this a current diagnosis for this admission?: Yes Plan: This may be chronic. An echocardiogram has been ordered to compare with prior studies. - Time Time Spent with patient: 15-24 minutes
[2018-04-20] MEDS: ACETAMINOPHEN 325 MG TABLET PO PRN (19:33)
--- NOTE | 2018-04-20 21:42 | XCELERA REPORT ---
[address] [address] Transthoracic Echocardiogram Report Name: JOHN CUADRA Age: 58 yrs Gender: Female : 1960 Patient Status: Inpatient Patient Location: [address] [place] [address] Study Date: 04/20/2018 10:05 AM Height: 64 in Weight: 226 lb BSA: 2.1 m2 Procedure: A two-dimensional transthoracic echocardiogram with color flow and Doppler was performed. The study was technically difficult with many images being suboptimal in quality. Reason For Study: CHF History: CHF. Ordering Physician: NATE TAVAREZ Performed By: Joseph Beavers Interpretation Summary CHF The left ventricle is normal in size. There is normal left ventricular wall thickness. LV EF is 65% Left ventricular systolic function is normal. Doppler measurements suggest impaired left ventricular relaxation, which is associated with grade I/IV or mild diastolic dysfunction The left ventricular wall motion is normal. There is no thrombus. The right ventricle is not well visualized secondary to technical limitations The right atrium is normal. The left atrial size is normal. There is no evidence of mitral valve prolapse. There is no mitral valve stenosis. There is a trace to mild amount of mitral regurgitation There is no aortic valve stenosis There is no LVOT obstruction. No aortic regurgitation is present. There is no tricuspid stenosis. There is a mild amount of tricuspid regurgitation Unable to calculate RVSP due to lack of obtaining a TR jet velocity. The aortic root is not well visualized. Small pericardial effusion. There are no echocardiographic or Doppler indications for cardiac tamponade MMode/2D Measurements & Calculations RVDd: 3.0 cm LVIDd: 4.7 cm FS: 38.4 % Ao root diam: 2.8 cm IVSd: 1.1 cm LVIDs: 2.9 cm EDV(Teich): 101.9 ml Ao root area: 6.1 cm2 LVPWd: 1.2 cm ESV(Teich): 32.0 ml LA dimension: 3.3 cm EF(Teich): 68.6 % Doppler Measurements & Calculations MV E max adithya: MV P1/2t max adithya: Ao V2 max: LV V1 max P.5 cm/sec 92.6 cm/sec 127.9 cm/sec 5.4 mmHg MV A max adithya: MV P1/2t: 43.6 msec Ao max P.5 mmHgLV V1 max: 107.4 cm/sec MVA(P1/2t): 5.0 cm2 116.0 cm/sec MV E/A: 0.94 MV dec slope: 621.8 cm/sec2 MV dec time: 0.14 sec PA V2 max: PI end-d adithya: MV P1/2t-pr_phl: 101.2 cm/sec 100.4 cm/sec 43.6 msec PA max P.1 mmHg Left Ventricle The left ventricle is normal in size. There is normal left ventricular wall thickness. LV EF is 65%. Left ventricular systolic function is normal. Doppler measurements suggest impaired left ventricular relaxation, which is associated with grade I/IV or mild diastolic dysfunction. The left ventricular wall motion is normal. There is no thrombus. Right Ventricle The right ventricle is not well visualized secondary to technical limitations. Atria The right atrium is normal. The left atrial size is normal. Mitral Valve There is no evidence of mitral valve prolapse. There is no vegetation seen on the mitral valve. There is no mitral valve stenosis. There is a trace to mild amount of mitral regurgitation. Aortic Valve There is no aortic valvular vegetation. There is no aortic valve stenosis. There is no LVOT obstruction. No aortic regurgitation is present. Tricuspid Valve There is no tricuspid stenosis. There is a mild amount of tricuspid regurgitation. Unable to calculate RVSP due to lack of obtaining a TR jet velocity. Pulmonic Valve There is no pulmonic valvular stenosis. There is a trace amount of pulmonic regurgitation. Great Vessels The aortic root is not well visualized. Effusions Small pericardial effusion. There are no echocardiographic or Doppler indications for cardiac tamponade. : NATE TAVAREZ > Winifred Newsome
[2018-04-20] MEDS: ATORVASTATIN CALCIUM 40 MG TABLET PO SCH (21:49)
[2018-04-20] MEDS: INSULIN GLARGINE,HUM.REC.ANLOG 300 UNIT/3 ML INSULN.PEN SUBCUT SCH (21:55)
[2018-04-21] MEDS: IPRATROPIUM/ALBUTEROL 0.5-2.5 MG/3 ML AMPUL NEB SCH ×4 (00:36→12:59)
[2018-04-21] MEDS: HEPARIN SOD (PORCINE) 5,000 UNIT/ML 1 ML SYRINGE SUBCUT SCH (05:47)
[2018-04-21] MEDS: INSULIN LISPRO 100 UNIT/ML 3 ML VIAL SUBCUT PRN ×2 (07:40→11:49)
[2018-04-21] MEDS: CARVEDILOL 12.5 MG TABLET PO SCH (10:17)
[2018-04-21] MEDS: FUROSEMIDE 40 MG TABLET PO SCH (10:18)
[2018-04-21] MEDS: CEFTRIAXONE SODIUM 1,000 MG in DEXTROSE 5%-WATER 50 ML IV SCH (10:18)
[2018-04-21] MEDS: LISINOPRIL 10 MG TABLET PO SCH (10:18)
[2018-04-21] MEDS: FAMOTIDINE 20 MG TABLET PO SCH (10:18)
[2018-04-21] MEDS: GUAIFENESIN 600 MG TABLET.SA PO SCH (10:18)
[2018-04-21] MEDS: AZITHROMYCIN 500 MG in DEXTROSE 5%-WATER 250 ML IV SCH (10:35)
[2018-04-21 13:14] VITALS: BP 147/55
--- NOTE | 2018-04-21 17:00 | PDOC DISCHARGE SUMMARY ---
General - Admit/Disc Date/PCP Admission Date/Primary Care Provider: 04/18/18 16:42 ROSSY BERGER MD Discharge Date: 04/21/18 - Discharge Diagnosis (1) Acute respiratory failure with hypoxemia Is this a current diagnosis for this admission?: Yes Summary: This resolved after the first day. She needed oxygen but then she was able to come off of it fairly rapidly. She was able to ambulate without getting short of breath at discharge. (2) Community acquired pneumonia Is this a current diagnosis for this admission?: Yes Summary: She responded fairly quickly to antibiotics. Her breath sounds had improved substantially but she still had a bit of a cough. She will complete a course of Levaquin as an outpatient. (3) Pericardial effusion Is this a current diagnosis for this admission?: Yes Summary: Last time she had an echocardiogram she was noted to have a very small pericardial effusion. That was the case this time as well. Her echocardiogram actually looked pretty good with the exception of that small pleural effusion. The function of her heart was not at all compromised. It is suspected that there is a chronic component to this. - Additional Information Resuscitation Status: Full Code Discharge Diet: Diabetic Discharge Activity: Activity As Tolerated Prescriptions: Albuterol Sulfate [Ventolin Hfa 8 gm Mdi (1 Mdi/ER Disp)] 2 puff IH ASDIR PRN # 1 inhaler PRN Reason: Levofloxacin [Levaquin 750 mg Tablet] 750 mg PO DAILY #5 tab Home Medications: Atorvastatin Calcium [Lipitor 40 mg Tablet] 40 mg PO QHS 04/19/18 Carvedilol [Coreg 25 mg Tablet] 25 mg PO Q12 04/19/18 Furosemide [Lasix 40 mg Tablet] 40 mg PO QAM 04/19/18 Glimepiride [Amaryl 4 mg Tablet] 4 mg PO Q12 04/19/18 Insulin Degludec [Tresiba Flextouch U-100] 10 units SQ DAILY 04/19/18 Liraglutide [Victoza 2-Martinez] 1.8 mg SQ DAILY 04/19/18 Lisinopril [Zestril] 40 mg PO QAM 04/19/18 Saxagliptin HCl/Metformin HCl [Kombiglyze Xr 5-1,000 mg Tab] 1 tab PO DAILY 02/25 Albuterol Sulfate [Ventolin Hfa 8 gm Mdi (1 Mdi/ER Disp)] 2 puff IH ASDIR PRN # 1 inhaler 04/21/18 Levofloxacin [Levaquin 750 mg Tablet] 750 mg PO DAILY #5 tab 04/21/18 History of Present Illness History of Present Illness: JOHN CUADRA is a 58 year old female with a PMH of HTN, HLD, CHF and DM type 2 who presented to the Ed c/o cough, chest pain, and SOB that was worse this morning. patient states she's been coughing for the past week and this morning it became worse. states her cough is non productive- she felt some chills but denies any fever at home. states this morning she started to have chest pain in the center- reproducible to palpation- worse with cough and deep breathing- intermittent in nature- does not radiate. denies left arm pain, jaw pain, diaphoresis or headaches. in the ED she complained of abdominal pain but now she tells me she doesn't have any pain. she denies recent travel, sick contacts or change in med/diet in the psat few weeks. in the ER she had CTA chest which shows RML and LLL PNA with some pericardial effusion. Hospital Course Hospital Course: She initially required oxygen when she was admitted. She responded very well and by the next day was off oxygen and ambulating independently. Her breathing had improved substantially and her cough improved as well. Her cultures have been negative thus far. Will finish up a course of Levaquin at home. She will follow-up with her primary care provider. Her labs and examination were reassuring she was discharged in good condition. Physical Exam Vital Signs: Temp Pulse Resp BP Pulse Ox 98.2 F 77 16 147/55 H 94 04/21/18 13:12 04/21/18 13:12 04/21/18 13:12 04/21/18 13:12 04/21/18 13:12 Intake & Output 04/20/18 04/21/18 04/22/18 06:59 06:59 06:59 Intake Total 1424 1839 737 Balance 1424 1839 737 Weight 101.8 kg 99.6 kg General appearance: PRESENT: no acute distress, cooperative, morbidly obese Respiratory exam: PRESENT: Coarse bibasilar breath sounds ABSENT: accessory muscle use, prolonged expiratory phase, rhonchi, tachypnea, wheezes Cardiovascular exam: PRESENT: RRR, +S1, +S2. ABSENT: diastolic murmur, systolic murmur Vascular exam: PRESENT: normal capillary refill GI/Abdominal exam: PRESENT: normal bowel sounds, soft. ABSENT: distended, guarding, rebound, tenderness Extremities exam: ABSENT: clubbing, pedal edema Musculoskeletal exam: PRESENT: normal inspection. ABSENT: deformity Neurological exam: PRESENT: alert, awake, oriented to person, oriented to place , oriented to time, oriented to situation Psychiatric exam: PRESENT: appropriate affect, normal mood Skin exam: PRESENT: dry, warm Results Laboratory Results: 04/19/18 05:05 04/19/18 05:05 Impressions: Chest X-Ray 04/18/18 11:11 IMPRESSION: Low volume AP examination with probable bibasilar bronchovascular crowding and/or atelectasis. This may be further evaluated by PA and lateral chest radiographs with better inspiratory technique if desired. Cardiomegaly is likely exaggerated by low volume. Abdomen Ultrasound 04/18/18 12:35 IMPRESSION: NORMAL RIGHT UPPER QUADRANT ULTRASOUND. Abdomen/Pelvis CT 04/18/18 12:35 IMPRESSION: NO SIGNIFICANT OR ACUTE FINDING IN THE ABDOMEN OR PELVIS ON CT SCAN WITH IV CONTRAST. Chest/Abdomen CTA 04/18/18 12:37 IMPRESSION: No pulmonary emboli. Pericardial effusion. Scattered parenchymal opacities predominantly right middle lobe and left lung base. Fatty liver. Qualifiers - * PATIENT BEING DISCHARGED WITH ANY OF THE FOLLOWING DIAGNOSIS: No
[2018-04-22] MEDS ORDERED: AZITHROMYCIN 250 MG TABLET PO SCH (10:00)
== END 2018-04-21 13:36 | disposition home or self-care (01) | DRG 193 ==
LOC: ER 10:42 → EH 16:42 → 4N 17:45
PROVIDERS: ADMIT Internal Medicine; ATTEND Internal Medicine
DX: J18.1 Lobar pneumonia, unspecified organism (principal); J96.01 Acute respiratory failure with hypoxia; I31.3 Pericardial effusion (noninflammatory); I50.32 Chronic diastolic (congestive) heart failure; I11.0 Hypertensive heart disease with heart failure; E11.65 Type 2 diabetes mellitus with hyperglycemia; E78.5 Hyperlipidemia, unspecified; M79.7 Fibromyalgia; R07.9 Chest pain, unspecified; R10.84 Generalized abdominal pain; Z79.84 Long term (current) use of oral hypoglycemic drugs; Z79.899 Other long term (current) drug therapy
CPT/HCPCS: 36415; 71045; 71275; 74177; 76705; 80048; 80053; 81001; 82550; 82553; 82962; 83036; 83605; 83690; 83880; 84484; 85025; 87040; 87804; 93005; 93010; 93306; 94640; 96361; 96374; 96375; 99285; J0456; J0696; J1644; J1815; J2270; J2405; J3490; J7060; J7120; J7620; S0028

== ENCOUNTER 2018-12-23 16:29 | Emergency (ER) | payer BC ==
--- NOTE | 2018-12-23 17:20 | ER Document Report ---
ED Medical Screen (RME) - General Chief Complaint: Eye Pain Stated Complaint: EYE PAIN Time Seen by Provider: 12/23/18 17:11 Primary Care Provider: ROSSY BERGER MD [Primary Care Provider] - Follow up as needed Mode of Arrival: Ambulatory Information source: Patient Notes: Patient is a 58-year-old female with diabetic retinopathy presented to the emergency department with left-sided eye pain after having injections done into the eye this morning by her print washer. She reports she called them and they told her to put in her eye ointment but she continues to have pain. Denies any direct trauma to the area other than the injections this morning. Exam: TRAVEL OUTSIDE OF THE [place] IN LAST 30 DAYS: No - Related Data Allergies/Adverse Reactions: metformin Adverse Reaction (Verified 12/23/18 16:33) strawberry Adverse Reaction (Verified 12/23/18 16:33) Past Medical History - Past Medical History Cardiac Medical History: Reports: Hx Congestive Heart Failure, Hx Hypercholesterolemia, Hx Hypertension Pulmonary Medical History: Reports: Hx Pneumonia Endocrine Medical History: Reports: Hx Diabetes Mellitus Type 1, Hx Diabetes Mellitus Type 2 Renal/ Medical History: Denies: Hx Peritoneal Dialysis Past Surgical History: Reports: Hx Breast Surgery - biopsy R breast, Hx Section - x2 - Immunizations Hx Diphtheria, Pertussis, Tetanus Vaccination: Yes Physical Exam - Vital signs Vitals: Temp Pulse Resp BP Pulse Ox 97.7 F 80 20 205/68 H 95 12/23/18 16:38 12/23/18 16:38 12/23/18 16:38 12/23/18 16:38 12/23/18 16:38 Course - Vital Signs Vital signs: Temp Pulse Resp BP Pulse Ox 97.7 F 80 20 205/68 H 95 12/23/18 16:38 12/23/18 16:38 12/23/18 16:38 12/23/18 16:38 12/23/18 16:38 Doctor's Discharge - Discharge Referrals: ROSSY BERGER MD [Primary Care Provider] - Follow up as needed
--- NOTE | 2018-12-23 17:21 | ER Document Report ---
HPI - HPI Time Seen by Provider: 12/23/18 17:11 Pain Level: 4 Notes: Patient is a 58-year-old female with diabetic retinopathy presented to the emergency department with left-sided eye pain after having injections done into the eye this morning by her subsystems engineer. She reports she called them and they told her to put in her eye ointment but she continues to have pain. Denies any direct trauma to the area other than the injections this morning. - REPRODUCTIVE Reproductive: DENIES: : Past Medical History - General Information source: Patient - Social History Smoking Status: Never Smoker Frequency of alcohol use: None Drug Abuse: None Family History: None - Past Medical History Cardiac Medical History: Reports: Hx Congestive Heart Failure, Hx Hypercholesterolemia, Hx Hypertension Pulmonary Medical History: Reports: Hx Pneumonia Endocrine Medical History: Reports: Hx Diabetes Mellitus Type 1, Hx Diabetes Mellitus Type 2 Renal/ Medical History: Denies: Hx Peritoneal Dialysis Past Surgical History: Reports: Hx Breast Surgery - biopsy R breast, Hx Section - x2 - Immunizations Hx Diphtheria, Pertussis, Tetanus Vaccination: Yes Vertical Provider Document - CONSTITUTIONAL Notes: PHYSICAL EXAMINATION: GENERAL: Well-appearing, well-nourished and in no acute distress. HEAD: Atraumatic, normocephalic. EYES: Subconjunctival hemorrhage noted to left eye at the 6:00 to 9:00 location. No evidence of corneal abrasion. ENT: Nares patent NECK: Normal range of motion LUNGS: No respiratory distress Musculoskeletal: Normal range of motion NEUROLOGICAL: Normal speech, normal gait. PSYCH: Normal mood, normal affect. SKIN: Warm, Dry, normal turgor, no rashes or lesions noted. - INFECTION CONTROL TRAVEL OUTSIDE OF THE [place] IN LAST 30 DAYS: No Course - Re-evaluation Re-evalutation: 12/23/18 17:20 Spoke with patient's subsystems engineer, Dr. Son Amaral. He recommends patient continue using the erythromycin ointment that he gave her. He recommends continuing to keep eye lubricated. He further recommends giving her a very short course of oral analgesics and he will see her first thing in the morning. He states this is an expected outcome with the procedure that he had this morning. Patient was hypertensive here in the emergency department. She states it is time for her to take her lisinopril. I did order a dose of this here in the emergency department. She will be discharged home at this time. She understands ED return precautions as it pertains to her eye pain. She knows to follow-up with her subsystems engineer first thing in the morning. The patient's emergency department workup and current diagnosis were explained to the patient and or family. Follow-up instructions were provided. Medications if prescribed were discussed. Instructions for when to return to the emergency department including specific worrisome symptoms were discussed with the patient and/or family. - Vital Signs Vital signs: Temp Pulse Resp BP Pulse Ox 97.7 F 80 20 205/68 H 95 12/23/18 16:38 12/23/18 16:38 12/23/18 16:38 12/23/18 16:38 12/23/18 16:38 Discharge - Discharge Clinical Impression: Eye pain Qualifiers: Laterality: left Qualified Code(s): H57.12 - Ocular pain, left eye Condition: Stable Disposition: HOME, SELF-CARE Additional Instructions: You are seen in the emergency department today for eye pain. This is a usual occurrence following the procedure that you had this morning. I spoke to your subsystems engineer who recommends continuing to use the erythromycin ointment. He recommends to keep the eye lubricated with the lubricating drops that you have. I have written you a short course of Percocet to help with the pain this evening and through the night. Please follow-up with him in the morning as discussed. Prescriptions: Oxycodone HCl/Acetaminophen [Percocet 5-325 mg Tablet] 1 - 2 tab PO Q4H PRN #8 tablet PRN Reason: Referrals: ROSSY BERGER MD [EM[facility]] - Follow up as needed
[2018-12-23] MEDS ORDERED: KETOROLAC TROMETHAMINE 0.45% 4 DROP/0.4 ML DROPERETTE OS ONE (17:22)
[2018-12-23] MEDS ORDERED: OXYCODONE-ACETAMINOPHEN 5-325 MG TABLET PO ONE (17:26)
[2018-12-23] MEDS ORDERED: LISINOPRIL 10 MG TABLET PO ONE (17:26)
[2018-12-23 17:29] VITALS: BP 190/57
== END 2018-12-23 17:34 | disposition home or self-care (01) ==
LOC: ER 16:29
DX: H57.12 Ocular pain, left eye (principal); E11.319 Type 2 diabetes mellitus with unspecified diabetic retinopathy without macular edema; H11.32 Conjunctival hemorrhage, left eye; Z98.890 Other specified postprocedural states; I10 Essential (primary) hypertension; Z79.899 Other long term (current) drug therapy
CPT/HCPCS: 99283

== ENCOUNTER 2019-03-31 07:50 | Day surgery (SDC) | payer BC ==
[~2019-03-31 07:50] MED LIST: CHONDR SU A NA/HYALUR INTRAOC KIT (SURGICARE) ONE; EPINEPHRINE INJ/PF 1 MG/1 ML AMPULE ONE; KETOROLAC TROMETHAMINE 0.45% 4 DROP/0.4 ML DROPERETTE OD PRN; LIDOCAINE 1%/PHENYLEPHRINE 1.5% 1 ML VIAL ONE
[2019-03-31] MEDS: BESIFLOXACIN HCL 0.6% OPH SUSP 5 ML BOTTLE OD PRN ×4 (08:50→09:56)
[2019-03-31] MEDS: CYCLOPENTOLATE 0.2%/PHENYLEPHRINE 1% OPH SOLN 2 ML OD PRN ×3 (08:50→09:15)
[2019-03-31] MEDS: TROPICAMIDE 1% OPH SOLN 15 ML OD PRN ×3 (08:50→09:15)
[2019-03-31] MEDS: TETRACAINE HCL 0.5% OPH SOLN 4 ML OD PRN ×3 (08:50→09:23)
[2019-03-31] MEDS ORDERED: FENTANYL CITRATE INJ/PF 100 MCG/2 ML AMPUL ONE (09:10)
[2019-03-31] MEDS ORDERED: MIDAZOLAM 2 MG/2 ML INJ ONE (09:10)
[2019-03-31] MEDS ORDERED: TRYPAN BLUE 0.06 % OPH SOLN 0.5 ML DISP.SYRIN ONE (09:34)
[2019-03-31] MEDS: DORZOLAMIDE HCL 2%/TIMOLOL MALEAT 0.5% OPH SOLN 10 ML OD PRN ×2 (09:40→09:56)
[2019-03-31] MEDS ORDERED: CHONDR SU A NA/HYALUR SOD 0.5 ML DISP.SYRIN ONE (09:41)
--- NOTE | 2019-03-31 13:26 | Operative Report ---
Operative Report-[facility] Operative Report: DATE OF SURGERY: 05/31/2018 PREOPERATIVE DIAGNOSIS: Cataract, right eye, Pupil Miosis corneal scar POSTOPERATIVE DIAGNOSIS: Cataract, right eye, Pupil miosis, corneal scar OPERATION: Complex Cataract extraction with insertion of an IOL of the right eye and use of trypan blue dye Intraocular Lens Model: [23.0 sn60wf] Reason surgery was difficulty seeing the small print and television SURGEON: Woodrow Siddiqi MD ANESTHESIA: Topical PROCEDURE: After obtaining appropriate consent, the patient's right eye was prepped and draped in a sterile fashion as well as the surgeon in the sterile manner and cataract surgery was started. First a paracentesis blade was used to make a side-port incision. Viscoelastic was used to inflate the anterior chamber. Next a 2.4 mm incision was made with a 2.4 mm blade, clear corneal temporarily. A continuous capsulorrhexis was made using a cystotome and Utrata forceps. Following this hydrodissection was carried out to make the lens fully loose and mobile and it was rotated freely. Following this, a divide and conquer technique was used to phacoemulsify the lens. The remaining cortex was removed with an irrigation/aspiration. Provisc was instilled into the capsular bag to inflate the bag. The intraocular lens was placed. The remaining viscoelastic material was removed with irrigation/aspiration. fPrior to making the capsulorhexis trypan blue dye was used to stain the anterior capsule due to poor visualization through the central corneal scar. This made it easier to see the rhexis. Besivance and Cosopt was instilled into the eye and a protective shield was placed over the eye. The patient was returned to the postoperative recovery in a stable condition.
== END 2019-03-31 10:41 | disposition home or self-care (01) ==
LOC: SC 07:50
PROVIDERS: ATTEND Internal Medicine
DX: H25.13 Age-related nuclear cataract, bilateral (principal); E11.3313 Type 2 diabetes mellitus with moderate nonproliferative diabetic retinopathy with macular edema, bilateral; Z87.891 Personal history of nicotine dependence; E78.00 Pure hypercholesterolemia, unspecified; Z88.8 Allergy status to other drugs, medicaments and biological substances; Z79.899 Other long term (current) drug therapy; M79.7 Fibromyalgia; I11.9 Hypertensive heart disease without heart failure; Z79.4 Long term (current) use of insulin; Z79.84 Long term (current) use of oral hypoglycemic drugs
CPT/HCPCS: 82962; 00142; 66982; V2632; J2250; J3490 ×4; J0171; J3010; J2370; 142